=== PATIENT | female | born 1940 | race Caucasian/White ===

== ENCOUNTER 2017-10-18 00:29 | Emergency (ER) | payer OTHER ==
[~2017-10-18] VITALS: Ht 160 cm; Wt 77.1 kg
[2017-10-18 00:29] VITALS: BP_SYST 145
--- NOTE | 2017-10-18 00:29 | NUR ---
Patient to ER bed 6 to gown for evaluation. Side rails up. Report given to DAYNA NIEVES.
--- NOTE | 2017-10-18 00:30 | NUR ---
Pt brought in by BLS transport in stable condition. Pt c/o having an anxiety attack due to insomnia. Pt stated that she medicated at home with Xanax but it was ineffective. Pt stated she is under a lot of stress at home and has been crying a lot lately. Placed pt on engine monitor. -sob -chest pain. No acute distress noted at this time, will continue to monitor.
--- NOTE | 2017-10-18 00:36 | NUR ---
AL Lopez at bedside examining patient.
[2017-10-18] MEDS ORDERED: LORazepam 1 MG TABLET PO ONE (00:45)
--- NOTE | 2017-10-18 00:57 | NUR ---
Received report from Janet RN: Care assumed.
--- NOTE | 2017-10-18 00:58 | NUR ---
Patient AAO x4, sitting in bed, anxious and quietly crying. Patient states she has feeling of anxiety, she took home anti-anxiety meds without any relief. Patient reports stress at home with Son needing " a heart transplant", no acute distress noted. Vital signs stable. Will continue to monitor.
--- NOTE | 2017-10-18 01:58 | NUR ---
Patient resting quietly. No acute distress noted. Vital signs within normal range.
[2017-10-18 02:00] LABS: BASOPHILS # (AUTO) 0.1 K/uL (0.0-0.2); BASOPHILS % (AUTO) 0.9 % (0.0-2.0); EOSINOPHILS # (AUTO) 0.1 K/uL (0.0-0.4); EOSINOPHILS % (AUTO) 1.4 % (0.0-4.0); HEMATOCRIT 28.9 % (36-48); HEMOGLOBIN 9.4 g/dL (12.0-16.0); LYMPHOCYTES # (AUTO) 0.9 K/uL (1.0-5.5); LYMPHOCYTES % (AUTO) 15.9 % (20.5-51.5); MEAN CORPUSCULAR HEMOGLOBIN 29 pg (27-31); MEAN CORPUSCULAR HGB CONC 32 % (32-36); MEAN CORPUSCULAR VOLUME 91 fL (79.0-98.0); MONOCYTES # (AUTO) 0.6 K/uL (0.0-1.0); MONOCYTES % (AUTO) 9.8 % (1.7-9.3); PLATELET COUNT (AUTO) 263 K/uL (130-430); RED BLOOD CELL COUNT(AUTO) 3.19 MIL/uL (4.2-6.2); RED CELL DISTRIBUTION WIDTH 13.4 % (9.0-15.0); WHITE BLOOD COUNT (AUTO) 5.7 K/uL (4.8-10.8)
[2017-10-18 02:09] LABS: ANION GAP 8 (5-15); CALCIUM 8.8 mg/dL (8.4-11.0); CHLORIDE 97 mmol/L (98-107); CREATININE 0.81 mg/dL (0.55-1.30); GLUCOSE 103 mg/dL (70-99); POTASSIUM 4.2 mmol/L (3.5-5.1); SODIUM SERUM 131 mmol/L (136-145); UREA NITROGEN, BLOOD 18 mg/dL (8-21)
[2017-10-18 02:24] LABS: ALANINE AMINOTRANSFERASE 16 U/L (12-78); ALBUMIN 3.7 g/dL (3.4-4.8); ASPARTATE AMINOTRANSFERASE 18 U/L (10-37); THYROID STIMULATING HORMONE 3.81 uIu/mL (0.36-3.74); TOTAL BILIRUBIN 0.2 mg/dL (0.0-1.0)
[2017-10-18 02:30] LABS: BILIRUBIN,URINE NEGATIVE (NEGATIVE); BLOOD, URINE TRACE (NEGATIVE); CLARITY/URINE CLEAR (CLEAR); COLOR,URINE YELLOW (YELLOW); GLUCOSE,URINE NEGATIVE (NEGATIVE); KETONES,URINE NEGATIVE (NEGATIVE); LEUKOCYTE ESTERASE ,URINE NEGATIVE (NEGATIVE); NITRITE, URINE NEGATIVE (NEGATIVE); PH,URINE 5.5 (5.0-8.0); PROTEIN URINE NEGATIVE (NEGATIVE); UROBILINOGEN,URINE 0.2 (0.2-1.0)
[2017-10-18 02:36] LABS: BACTERIA,URINE FEW /HPF (None Seen); RBC,URINE 0-3 /HPF (0-3); WBC,URINE 0-3 /HPF (0-3)
--- NOTE | 2017-10-18 02:58 | NUR ---
Patient resting quietly. No acute distress noted. Vital signs within normal range.
--- NOTE | 2017-10-18 03:40 | NUR ---
Called [employer] for patient transfer home, patient states she cannot call daughter at this time and will pay for her own cab. ETA [phone].
--- NOTE | 2017-10-18 04:40 | NUR ---
Patient ambulated to the bathroom. Steady gait noted. Will continue to monitor.
[2017-10-18 05:34] VITALS: BP_SYST 132
--- NOTE | 2017-10-18 05:34 | NUR ---
Patient given written and verbal discharge instructions and verbalizes understanding. ER MD discussed with patient the results and treatment provided. Patient in stable condition. ID arm band removed. No Rx given. Patient educated on pain management and to follow up with PMD. Pain Scale 0/10. Opportunity for questions provided and answered. Medication side effect fact sheet provided.
== END 2017-10-18 05:34 | disposition home or self-care (01) ==
LOC: SED 00:29
DX: F41.9 Anxiety disorder, unspecified (principal); R94.6 Abnormal results of thyroid function studies; E87.1 Hypo-osmolality and hyponatremia; D64.9 Anemia, unspecified; E11.9 Type 2 diabetes mellitus without complications; Z95.0 Presence of cardiac pacemaker
CPT/HCPCS: 36415; 80053; 81000-TC; 82962; 84439; 84443-TC; 84484; 85025; 93005; 99285